=== PATIENT | female | born 1965 | race Caucasian/White ===

== ENCOUNTER → 2016-10-14 | Outpatient (CLI) | payer OTHER ==
[2015-10-20 14:13] VITALS: BP 135/71
[~2016-10-14] MED LIST: ALBU8.5H6 INH; AZIT250T6 PO; BUDE10.2 IH; BUSP7.5T PO; CALC-98 PO; CALC0.25 PO; CEFT600V IV; CELE200C PO; CETI10TA22 PO; CLON1TAB PO; DILT180C29 PO; DILT240C2 PO; DOCU100C5 PO; ESCI10TA10 PO; FERR325T31 PO; FLUT16SP2 NS; FLUT9.9S NS; FURO20TA3 PO; FURO40TA4 PO; HYDR-963 PO; HYDR50TA6 PO; LEVO112T4 PO; LEVO150T5 PO; MAGN400T22 PO; MAGN400T3 PO; MELO15TA6 PO; METO100T11 PO; MOME17SP NS; MONT10TA6 PO; MORP15TA3 PO; OXYC-250 PO; OXYC1TAB9 PO; OXYC20TA34 PO; PANT40TA3 PO; POTA20TA4 PO; PRED50TA PO; RANI150T6 PO; TIZA4TAB PO; TRAM50TA PO; TRAZ150T55 PO; TRAZ50TA15 PO; WARF1TAB PO; WARF5TAB PO
--- NOTE | 2016-10-14 14:43 | EKG ---
[facility] [address] [place] [address] Test Date: 2016-10-14 Test Time: 14:42:47 Pat Name: TINA CONWAY Department: Room: Gender: F Customer Relations Specialist: YANE : 1965 Requested By: JOVAN GARCIA Order Number: [id number] Reading MD: Brennen Arreola Measurements Intervals [place] Rate: 83 P: 90 MT: 198 QRS: 31 QRSD: 60 T: 55 QT: 356 QTc: 424 Interpretive Statements SINUS RHYTHM LEFT ATRIAL ABNORMALITY QRS(T) CONTOUR ABNORMALITY CONSISTENT WITH POSSIBLE ANTEROSEPTAL INFARCT AGE UNDETERMINED ABNORMAL ECG RI6.01 Electronically Signed On 10-15-2016 16:04:24 CDT by Brennen Arreola
--- NOTE | 2016-10-14 15:16 | RAD ---
Chest, 2 views, 10/14/2016: History: Preop evaluation for knee surgery Comparison is made to a study from 10/14/2015. The heart size and pulmonary vascularity are normal. No pulmonary infiltrates are seen. There is no evidence of pleural fluid. Mild spurring is present in the spine. IMPRESSION: No acute cardiopulmonary abnormality is detected.
== END | disposition home or self-care (01) ==
LOC: SURGPAT 13:48
PROVIDERS: ATTEND Orthopaedic Surgery
DX: Z01.818 Encounter for other preprocedural examination (principal)
CPT/HCPCS: 36415; 71020; 80048; 81001; 82040; 85027; 85610; 85651; 85730; 87641; 93005

== ENCOUNTER → 2017-07-25 | Outpatient (CLI) | payer OTHER | END | disposition home or self-care (01) | LOC: PNCL 11:30 | DX: M51.16 Intervertebral disc disorders with radiculopathy, lumbar region (principal); I10 Essential (primary) hypertension; D64.9 Anemia, unspecified; E03.9 Hypothyroidism, unspecified | CPT/HCPCS: 99212 ==

== ENCOUNTER → 2017-08-08 | Outpatient (CLI) | payer OTHER ==
[~2017-08-08] MED LIST changes: -ALBU8.5H6 INH; -AZIT250T6 PO; -BUDE10.2 IH; -BUSP7.5T PO; -CALC-98 PO; -CALC0.25 PO; -CEFT600V IV; -CELE200C PO; -CETI10TA22 PO; -CLON1TAB PO; -DILT180C29 PO; -DILT240C2 PO; -DOCU100C5 PO; -ESCI10TA10 PO; -FERR325T31 PO; -FLUT16SP2 NS; -FLUT9.9S NS; -FURO20TA3 PO; -FURO40TA4 PO; -HYDR-963 PO; -HYDR50TA6 PO; +IOHEXOL 180 MG/ML 10 ML VIAL.; -LEVO112T4 PO; -LEVO150T5 PO; -MAGN400T22 PO; -MAGN400T3 PO; -MELO15TA6 PO; -METO100T11 PO; -MOME17SP NS; -MONT10TA6 PO; -MORP15TA3 PO; -OXYC-250 PO; -OXYC1TAB9 PO; -OXYC20TA34 PO; -PANT40TA3 PO; -POTA20TA4 PO; -PRED50TA PO; -RANI150T6 PO; -TIZA4TAB PO; -TRAM50TA PO; -TRAZ150T55 PO; -TRAZ50TA15 PO; -WARF1TAB PO; -WARF5TAB PO; +methylPREDNISolone ACETATE 40 MG/ML VIAL.; +methylPREDNISolone ACETATE 80 MG/ML VIAL.
== END | disposition home or self-care (01) ==
LOC: PNCL 10:53
DX: M51.16 Intervertebral disc disorders with radiculopathy, lumbar region (principal); M96.1 Postlaminectomy syndrome, not elsewhere classified; E07.9 Disorder of thyroid, unspecified; I13.0 Hypertensive heart and chronic kidney disease with heart failure and stage 1 through stage 4 chronic kidney disease, or unspecified chronic kidney disease; I50.9 Heart failure, unspecified; N18.9 Chronic kidney disease, unspecified; F41.9 Anxiety disorder, unspecified; F32.9 Major depressive disorder, single episode, unspecified; E03.9 Hypothyroidism, unspecified; D64.9 Anemia, unspecified; Z86.69 Personal history of other diseases of the nervous system and sense organs; Z86.14 Personal history of Methicillin resistant Staphylococcus aureus infection; Z87.39 Personal history of other diseases of the musculoskeletal system and connective tissue; Z88.1 Allergy status to other antibiotic agents; Z91.048 Other nonmedicinal substance allergy status
CPT/HCPCS: 62323; J1030; J1040

== ENCOUNTER → 2018-09-20 | Outpatient (CLI) | payer OTHER ==
[2017-05-06 14:47] VITALS: BP 120/69
[~2018-09-20] MED LIST changes: +ALBU8.5H6 INH; +AZIT250T6 PO; +BUDE10.2 IH; +BUSP7.5T PO; +CALC-98 PO; +CALC0.25 PO; +CALC0.5C8 PO; +CEFT600V IV; +CELE200C PO; +CETI10TA22 PO; +CITA40TA5 PO; +CLON1TAB PO; +CYCL10TA2 PO; +DILT180C29 PO; +DILT240C2 PO; +DOCU100C28 PO; +FERR-36 PO; +FLUT16SP2 NS; +FLUT9.9S NS; +FURO20TA3 PO; +FURO40TA4 PO; +HYDR-3135 PO; +HYDR50TA6 PO; -IOHEXOL 180 MG/ML 10 ML VIAL.; +LEVO112T4 PO; +LEVO150T5 PO; +LEXAPRO10 MG PO; +LURA40TA PO; +MAGN400T22 PO; +MAGN400T3 PO; +MELO15TA6 PO; +METO-247 PO; +MOME17SP NS; +MONT10TA6 PO; +MORP15TA3 PO; +MORP30TA83 PO; +OXYC-411 PO; +OXYC1TAB19 PO; +OXYC1TAB22 PO; +OXYC20TA34 PO; +PANT20TA2 PO; +PANT40TA3 PO; +POTA20TA4 PO; +POTA20TA82 PO; +PRED50TA PO; +RANI-376 PO; +TIZA4TAB PO; +TRAM50TA PO; +TRAZ-118 PO; +TRAZ150T49 PO; +WARF-78 PO; +WARF1TAB74 PO; -methylPREDNISolone ACETATE 40 MG/ML VIAL.; -methylPREDNISolone ACETATE 80 MG/ML VIAL.
--- NOTE | 2018-09-20 15:57 | KCIC ---
EXAM: Lumbar spine MRI without contrast. HISTORY: Pain. TECHNIQUE: Multiplanar, multisequence magnetic resonance imaging of the lumbar spine was performed without contrast. COMPARISON: 05/05/2017. FINDINGS: There is grade 1 anterolisthesis of L4 on L5, measuring 5 mm. There is minimal retrolisthesis of L5 on S1, measuring 2 mm. There is degenerative endplate remodeling with disc space narrowing, osteophytosis and Schmorl's node formation at L4-L5. There is slight disc desiccation predominantly at this level. The conus terminates at L1-L2. There is no suspicious osseous lesion. There is no acute or subacute fracture. The urinary bladder is distended. At L1-L2, there is no stenosis. At L2-L3, there is mild facet arthropathy. There is no stenosis. At L3-L4, there is a disc bulge. There is mild facet arthropathy. There is mild bilateral foraminal stenosis with abutment of the exiting L3 nerve roots. There is minimal central canal stenosis. At L4-L5, there is a broad-based posterior central disc protrusion superimposed on a disc bulge and endplate osteophytosis. There is moderate facet arthropathy. There are right hemilaminectomy changes. There is grade 1 anterolisthesis. There is moderate bilateral foraminal stenosis with abutment of the exiting L4 nerve roots. There is moderate central canal stenosis. At L5-S1, there is a disc bulge and endplate remodeling. There is mild left facet arthropathy. There is mild bilateral foraminal stenosis with abutment of the exiting L5 nerve roots. IMPRESSION: 1. Multilevel degenerative change throughout the lumbar spine, described in detail above. This results in suspected mild bilateral foraminal stenosis and abutment of the exiting L3 nerve roots and minimal central canal stenosis at L3-L4, moderate lateral foraminal stenosis with abutment of the exiting L4 nerve roots and moderate central canal stenosis at L4-L5, and mild bilateral foraminal stenosis with abutment of the exiting L5 nerve roots at L5-S1. These findings are not significantly changed compared to the prior study, allowing for differences in technique. 2. Grade 1 anterolisthesis of L4 on L5. 3. Right hemilaminectomy changes at L4-L5. Electronically signed by: Janine Garcia MD (09/20/2018 3:54 PM) [facility]
== END | disposition home or self-care (01) ==
LOC: KCIC MRI 13:36
DX: M51.26 Other intervertebral disc displacement, lumbar region (principal); M48.061 Spinal stenosis, lumbar region without neurogenic claudication
CPT/HCPCS: 72148

== ENCOUNTER → 2018-12-28 | Outpatient (CLI) | payer OTHER ==
[2017-05-06 14:47] VITALS: BP 120/69
[~2018-12-28] MED LIST changes: +MONT10TA49 PO; -MONT10TA6 PO; -PANT40TA3 PO; +PANT40TA77 PO
--- NOTE | 2018-12-28 14:20 | PAIN ---
DATE OF SERVICE: 12/28/2018 PROGRESS NOTE FOR PAIN CLINIC DIAGNOSES: Lumbar radiculopathy with lumbar degenerative disk disease and post-lumbar laminectomy syndrome. HISTORY OF PRESENT ILLNESS: The patient is a 53-year-old female who returns for followup, last seen 08/08/2017. The patient did very well after caudal epidural steroid injection x 2. The patient reports about 75% improvement after the last injection. Again, this was a year ago in July, but the pain returned into the low back and the right lower extremity, posterior gluteus, posterior thigh and posterior calf; much worse with standing, walking and weightbearing; radiating significantly into the leg and foot on the right side as well as across the low back. The patient reports it is aching, sharp, tight, shooting, becoming more constant and more severe, radiating and unbearable at times with walking, standing and changing positions. The patient reports it is better with sitting or lying down, but awakens her from sleep still about once or twice at night. The patient reports in the last 2 months, it had been more severe than previously, again in about a year and a half before the pain returned significantly. The patient reports it is a 10 on a scale of 10 at all times over the past week average, worst and least and is a 10 today. The patient reports no new motor or sensory deficits. Difficulty with weightbearing, however, on the right leg because of the pain. PHYSICAL EXAMINATION: VITAL SIGNS: Today, the patient's blood pressure is 124/72, pulse is 127, respirations 16 and temperature is 97.7 degrees Fahrenheit. Height is 5 feet 4 inches, weight is 214 pounds. GENERAL: The patient is awake, alert, oriented, appropriate, very pleasant demeanor. HEENT EXAMINATION: Shows normocephalic and atraumatic. Extraocular movements are intact and symmetrical. Oral cavity, mucous membranes are moist and pink. Dentition is intact. NECK: Shows anterior throat supple, without palpable lymphadenopathy noted. Swallow reflex is symmetrical. CHEST: Shows normal on inspection. Breath sounds are clear to auscultation bilaterally. HEART: Shows S1, S2 clear. No murmurs auscultated. ABDOMEN: Soft, nontender and nondistended. No palpable organomegaly is noted. No rebound or guarding demonstrated. BACK: Shows spine grossly in the midline. Normal-appearing thoracic kyphosis and lumbar lordotic curvature, slightly flattened. Lumbar paraspinous muscle shows symmetrical on inspection. On palpation, there is some moderate tenderness diffusely and a well-healed surgical scar once again noted. The patient's paraspinous muscle shows moderate tenderness with palpation, but only diffusely bilaterally. No radiation is demonstrated. EXTREMITIES: The patient's lower extremities show deep tendon reflexes 1+ in the patellar and tendo calcaneus tendons. Motor exam is strong with approximately 4 on a scale of 5 with dorsiflexion, extension, quadriceps and hamstring flexion, but equal and symmetrical. Peripheral pulses are 1+ posterior tibial. No peripheral edema is noted. Options were discussed with the patient. The patient's old chart was reviewed as was her current medication regimen updated. Current review of systems updated today as well. We will preauthorize the patient for a lumbar epidural steroid injection with caudal approach as she did very well with this on her last visit, with about 75% improvement for almost 2 years. The patient is returning now with radicular pain in the low back, right lower extremity and in the L5-S1 dermatomal distribution. The patient will continue with doing stretching and strengthening exercises on her own, as she has been doing therapy on her own at home and doing quite well with this until the last 2 months or so. Also, we will try Medrol Dosepak. The patient was given instruction as well as side effects to be aware of with the medication and we will follow up as scheduled. NAYAN CARL MD DR: JW/haylee JOB#: [id number] / [id number]
== END | disposition home or self-care (01) ==
LOC: PNCL 13:04
PROVIDERS: ATTEND Anesthesiology
DX: M51.16 Intervertebral disc disorders with radiculopathy, lumbar region (principal); M96.1 Postlaminectomy syndrome, not elsewhere classified
CPT/HCPCS: G0463

== ENCOUNTER → 2019-01-16 | Outpatient (CLI) | payer MEDICARE, OTHER ==
[2017-05-06 14:47] VITALS: BP 120/69
[~2019-01-16] MED LIST changes: +IOHEXOL 180 MG/ML 10 ML VIAL. ONE; +methylPREDNISolone ACETATE 40 MG/ML VIAL. ONE; +methylPREDNISolone ACETATE 80 MG/ML VIAL. ONE
--- NOTE | 2019-01-16 11:45 | PAIN ---
DATE OF SERVICE: 01/16/2019 PROGRESS NOTE FOR PAIN CLINIC DIAGNOSES: Lumbar radiculopathy with lumbar degenerative disk disease and post-lumbar laminectomy syndrome. HISTORY OF PRESENT ILLNESS: The patient is a 53-year-old female who returns for followup, last seen on 12/28/2018. The patient was waiting for preauthorization and has obtained this now for her injection. The patient reports still significant pain in the low back and bilateral lower extremities. Originally, she was about 75% better from the last injection, but this was over a year ago. The patient reports her pain now is returning in the low back, left lower extremity, posterior gluteus, posterior thigh, posterior calf and some on the right as well, but mostly on the left. The patient reports it is a 9 on a scale of 10 at its worst, 7 on average and 3 at its least and it is a 7 today. The patient reports no new motor or sensory deficits, no new bowel or bladder incontinence or other complaints, but still significant pain as noted. The patient reports no new motor or sensory deficits, no new bowel or bladder incontinence or other complaints. PHYSICAL EXAMINATION: VITAL SIGNS: The patient's blood is pressure 123/78, pulse 96, respirations 18 and temperature is 97.7 degrees Fahrenheit. Height is 5 feet 4 inches. GENERAL: The patient is awake, alert, oriented and appropriate. She has very pleasant demeanor. HEENT EXAMINATION: Shows normocephalic, atraumatic. Extraocular movements are intact and symmetrical. Oral cavity, mucous membranes are moist and pink. Dentition is intact. NECK: Shows anterior throat supple, without palpable lymphadenopathy noted. Swallow reflex is symmetrical. CHEST: Shows normal with inspection. Breath sounds are clear to auscultation bilaterally. HEART: Shows S1, S2 clear. No murmurs auscultated. ABDOMEN: Soft, nontender and nondistended. No palpable organomegaly is noted. No rebound or guarding demonstrated. BACK: Shows spine grossly in the midline. Normal-appearing thoracic kyphosis and lumbar lordotic curvature is slightly flattened. Well-healed surgical scars again noted. Lumbar paraspinous muscle shows symmetrical on inspection. On palpation, it shows some moderate tenderness, but only diffusely, without radiation. The patient shows good rotational motion of the lumbar spine as well as extension and flexion, without significant increase in pain. EXTREMITIES: Lower extremities show deep tendon reflexes 1+ in the patella and tendo calcaneus tendons. Motor exam is 4 on a scale of 5, but symmetrical and equal with dorsiflexion, extension, quadriceps and hamstring flexion. Peripheral pulses are 1+ posterior tibial. No peripheral edema is noted. Options were discussed with the patient. The patient's old chart was reviewed as was her current medication regimen updated. Current review of systems updated today as well. We will proceed with a caudal approach epidural steroid injection today with fluoroscopic guidance. Risks were again discussed including, but not limited to bleeding, infection, possibility of epidural hematoma, subsequent neurologic compromise, dural puncture, headaches, spinal cord and/or nerve damage, side effects to steroid medication and poor results regarding pain control. The patient understands and wishes to proceed. The patient will return to the clinic in approximately 2 weeks for followup. She was counseled on her return appointment, activity level and side effects to be aware of. DIAGNOSES: Lumbar radiculopathy with lumbar degenerative disk disease and lumbar post-laminectomy syndrome. PROCEDURE: Lumbar epidural steroid injection in caudal approach using C-arm fluoroscopic guidance under sterile prep and drape using local anesthetic. MEDICATIONS INJECTED: A total of 120 mg Depo-Medrol plus 10 mL of preservative-free normal saline and 2 mL of contrast. CONDITION AT DISCHARGE: Stable. The patient tolerated the procedure well, had no complications. NAYAN CARL MD DR: JW/haylee JOB#: [id number] / [id number]
== END ==
LOC: PNCL 10:30
PROVIDERS: ATTEND Anesthesiology
DX: M51.16 Intervertebral disc disorders with radiculopathy, lumbar region (principal); M96.1 Postlaminectomy syndrome, not elsewhere classified
CPT/HCPCS: 62323; J1030; J1040; Q9965

== ENCOUNTER → 2019-02-06 | Outpatient (CLI) | payer MEDICARE ==
[2017-05-06 14:47] VITALS: BP 120/69
[~2019-02-06] MED LIST changes: -TIZA4TAB PO; +TIZA4TAB2 PO
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
== END ==
LOC: PNCL 10:56
PROVIDERS: ATTEND Anesthesiology
DX: M51.16 Intervertebral disc disorders with radiculopathy, lumbar region (principal); M96.1 Postlaminectomy syndrome, not elsewhere classified
CPT/HCPCS: 62323; J1030; J1040; Q9965

== ENCOUNTER → 2020-06-30 | Outpatient (CLI) | payer MEDICARE ==
[2017-05-06 14:47] VITALS: BP 120/69
[~2020-06-30] MED LIST changes: -CETI10TA22 PO; +CETI10TA74 PO; -IOHEXOL 180 MG/ML 10 ML VIAL. ONE; -LEVO112T4 PO; +LEVO112T49 PO; -MAGN400T3 PO; +MAGN400T5 PO; +MORP-15 PO; -MORP15TA3 PO; -OXYC-411 PO; +OXYC1TAB20 PO; -POTA20TA82 PO; -WARF-78 PO; +WARF1TAB2 PO; -WARF1TAB74 PO; +WARF5TAB2 PO; -methylPREDNISolone ACETATE 40 MG/ML VIAL. ONE; -methylPREDNISolone ACETATE 80 MG/ML VIAL. ONE
== END ==
LOC: LAB 12:38
PROVIDERS: ATTEND Orthopaedic Surgery
DX: L02.416 Cutaneous abscess of left lower limb (principal)
CPT/HCPCS: 87071; 87075

== ENCOUNTER → 2020-08-29 | Outpatient (CLI) | payer MEDICARE ==
[2017-05-06 14:47] VITALS: BP 120/69
[~2020-08-29] MED LIST changes: -HYDR50TA6 PO; +HYDR50TA9 PO; +IOHEXOL 300 MG/ML 50 ML VIAL. INT ART ONE
--- NOTE | 2020-09-03 08:56 | RAD ---
Examination: Left knee fluoroscopy guided arthrocentesis INDICATION: 55-year-old woman with left knee pain and swelling status post repeat left knee arthropla sty, most recently in 2018. She reports a recent history of tenderness, induration and swelling in th e lateral soft tissues of the left knee which substantially improved following a course of antibiotic s. COMPARISON: Left knee x-rays of 06/30/2020 TECHNIQUE AND FINDINGS: Informed consent was obtained and an appropriate procedural pause observed. Based on the patient's description of symptoms and initially stated goals, initial attempt at left kn ee aspiration was pursued using ultrasound guidance, surveying the area of residual induration and sw elling reported by the patient in the lateral pretibial soft tissues. However the ultrasound images showed phlegmonous tissue with no mature fluid collection amenable to a spiration. Upon discussing these initial findings with the patient's referring surgeon by telephone, he provided additional clarification that the desired target of aspiration was not the phlegmonous so ft tissue the patient had identified (which was gradually resolving on antibiotics) but the knee join t space itself, if possible. With that additional guidance, initial attempt at needle placement using ultrasound targeting the pro sthetic medial femoral condyle was pursued. Standard sterile technique, ultrasound guidance and local anesthesia was utilized. Needle advancement met with some resistance and incomplete advancement of t he needle to the targeted joint space with ultrasound guidance. Therefore, imaging guidance was switched from ultrasound to fluoroscopy which showed needle placement projecting over ossification in the medial left knee, not previously evident on ultrasound. Therefor e, using the same puncture site, the needle was repositioned, targeting the space between the femoral and tibial condyles and needle tip positioning was assessed with a small amount of administered iodi nated contrast. Although the needle was advanced to the space between the tibial and femoral prostheses, the contrast material did not satisfactorily dissipate in the joint space so the needle was repositioned for a mo re direct medial approach until resistance was encountered. Additional administration of some contras t material suggested opacification of the medial aspect of the left knee joint so 15 mL of sterile sa line was injected into the joint and attempt at aspiration was performed. This retrieved approximately 1.5 mL of clear fluid which was sent for laboratory analysis. The needle was removed, puncture site dressed and postprocedure instructions reviewed. There were no immediate complications. 5 fluoroscopic images were acquired using a total of 1.3 minutes of fluoroscopy time. IMPRESSION: Fluoroscopically guided left knee joint aspiration as described. Electronically signed by: Alesha Lucas MD (09/03/2020 8:53 AM) [id number]
== END | disposition home or self-care (01) ==
LOC: RAD 14:41
PROVIDERS: ATTEND Orthopaedic Surgery
DX: M25.562 Pain in left knee (principal); I11.0 Hypertensive heart disease with heart failure; I50.9 Heart failure, unspecified; E78.00 Pure hypercholesterolemia, unspecified; J44.9 Chronic obstructive pulmonary disease, unspecified; G47.30 Sleep apnea, unspecified; K21.9 Gastro-esophageal reflux disease without esophagitis; M19.90 Unspecified osteoarthritis, unspecified site; E66.9 Obesity, unspecified; E03.9 Hypothyroidism, unspecified; F41.9 Anxiety disorder, unspecified; F32.9 Major depressive disorder, single episode, unspecified; Z87.891 Personal history of nicotine dependence; Z98.890 Other specified postprocedural states; Z98.51 Tubal ligation status; Z79.899 Other long term (current) drug therapy; Z88.8 Allergy status to other drugs, medicaments and biological substances
CPT/HCPCS: 20610; 36415; 77002; 87071; 87075; 87102; 87116; Q9967; 89060

== ENCOUNTER → 2020-10-22 | Outpatient (CLI) | payer MEDICARE ==
[~2020-10-22] MED LIST changes: -IOHEXOL 300 MG/ML 50 ML VIAL. INT ART ONE; +LORA0.5T96 PO; +PREG-9 PO
[2020-10-22 14:50] VITALS: BP 151/75
== END ==
LOC: SPEC 15:39
PROVIDERS: ATTEND Physician Assistant
DX: T84.84XS Pain due to internal orthopedic prosthetic devices, implants and grafts, sequela (principal)
CPT/HCPCS: 36415; 89060

== ENCOUNTER 2020-11-10 18:49 | Emergency (ER) | payer MEDICARE ==
[~2020-11-10] VITALS: Ht 165.1 cm; Wt 113.6 kg
--- NOTE | 2020-11-10 19:12 | PHYS DOC ---
Past Medical History Past Medical History: Anxiety, Asthma, Bipolar, Depression, GERD, Hypertension, Other Additional Past Medical Histor: panic disorder, lymphoma, CHRONIC LEFT KNEE AND RIGHT LOWER BACK PAIN Past Surgical History: Knee Replacement, Other Additional Past Surgical Histo: total thyroidectomy, lymph node removal with radiation treatment Smoking Status: Former Smoker Alcohol Use: Occasionally Drug Use: None General Adult EDM: Chief Complaint: WOUND CHECK HPI: HPI: Patient is a 55 year oldbns-[id number] man female patient presented to the ED today with complaints of left knee drainage. Patient states she had a wound VAC which was removed a couple days ago because it had malfunction. Patient has had multiple left knee replacement surgeries for infection, recent surgery was 10/25/2020. She had hardware removed and antibiotic spacer was placed. She is currently on IV antibiotics, she states today she has noted increased drainage from the knee. Review of Systems: Review of Systems: Constitutional: Denies fever or chills. [] Musculoskeletal: Denies back pain or joint pain. [] Integument: Left knee drainage Neurologic: Denies headache, focal weakness or sensory changes. [] Psychiatric: Denies depression or anxiety. [] Heart Score: C/O Chest Pain: N/A Risk Factors: Risk Factors: DM, Current or recent (<one month) smoker, HTN, HLP, family history of CAD, obesity. Risk Scores: Score 0 - 3: 2.5% MACE over next 6 weeks - Discharge Home Score 4 - 6: 20.3% MACE over next 6 weeks - Admit for Clinical Observation Score 7 - 10: 72.7% MACE over next 6 weeks - Early Invasive Strategies Allergies: Allergies: Allergies Coded Allergies Type Severity Reaction Last Updated Verified adhesive Allergy Intermediate Itching 10/26/16 Yes hydromorphone Allergy Intermediate HAD SEVERE ITCHING, N/V AND IT DID NOT TREAT THE PAIN 05/05/17 Yes vancomycin Adverse Reaction Severe 10/23/20 Yes Uncoded Allergies Type Severity Reaction Last Updated Verified DUST Adverse Reaction Intermediate 10/26/16 Physical Exam: PE: Constitutional: Well developed, well nourished, no acute distress, non-toxic appearance. [] Skin: Left knee with a well approximated laceration site, there is a dot size open wound on the knee with trace clear drainage, no pus. There a few Steri- Strips over the incision site. No signs of infection Back: No tenderness, no CVA tenderness. [] Extremities: No tenderness, no cyanosis, no clubbing, ROM intact, no edema. [] Neurologic: Alert and oriented X 3, normal motor function, normal sensory function, no focal deficits noted. [] Psychologic: Affect normal, judgement normal, mood normal. [] EKG: EKG: [] Radiology/Procedures: Radiology/Procedures: [] Course & Med Decision Making: Course & Med Decision Making Pertinent Labs and Imaging studies reviewed. (See chart for details) This is a 55-year-old female patient presenting to the ED today for wound check for the left knee after having wound VAC removed from the knee. See HPI. She is currently on antibiotics and has antibiotic spacers in the knee. Wound appears well. No signs of infection. Has had multiple surgeries and follows up with Dr. Echeverria. Shant Disclaimer: Shant Disclaimer: This electronic medical record was generated, in whole or in part, using a voice recognition dictation system. Departure Departure Impression: Primary Impression: Visit for wound check Disposition: HOME / SELF CARE / HOMELESS Condition: STABLE Referrals: BRENDA POLO MD (PCP) JOVAN ECHEVERRIA MD Call his office tomorrow and follow up Patient Instructions: Wound Check Additional Instructions: Your left knee was evaluated, the incision appears well, there is no signs of infection today. Drainage from a surgical wound is not unusual especially after a wound VAC is discontinued. Monitor the area. If you have uncontrolled drainage, come to the ED. If you develop a fever or have yellow purulent material, come back to the ED. Follow-up with your orthopedic doctor. CHRISTINA NUNEZ HUMAN PERFORMANCE TECHNOLOGIST November 10, 2020 19:12
[2020-11-10 20:10] VITALS: BP 105/62
== END 2020-11-10 20:26 | disposition home or self-care (01) ==
LOC: ER 18:49
DX: S81.012D Laceration without foreign body, left knee, subsequent encounter (principal); F31.9 Bipolar disorder, unspecified; J45.909 Unspecified asthma, uncomplicated; K21.9 Gastro-esophageal reflux disease without esophagitis; I10 Essential (primary) hypertension; Z87.891 Personal history of nicotine dependence; Z96.652 Presence of left artificial knee joint; Z88.5 Allergy status to narcotic agent; Z88.1 Allergy status to other antibiotic agents; Z88.8 Allergy status to other drugs, medicaments and biological substances; X58.XXXD Exposure to other specified factors, subsequent encounter
CPT/HCPCS: 99283